=== PATIENT | male | born 1980 | race Caucasian/White ===

== ENCOUNTER 2017-11-07 09:26 | Emergency (ER) | payer OTHER ==
[~2017-11-07] VITALS: Ht 175.3 cm; Wt 81.7 kg
[2017-11-07] MEDS ORDERED: ZOCOR20 MG PO (09:37)
[2017-11-07 10:25] VITALS: BP 138/75
== END 2017-11-07 10:25 | disposition home or self-care (01) ==
LOC: M.ERS 09:26
DX: S01.81XA Laceration without foreign body of other part of head, initial encounter (principal); F17.210 Nicotine dependence, cigarettes, uncomplicated; W18.09XA Striking against other object with subsequent fall, initial encounter; Y93.89 Activity, other specified; Y92.89 Other specified places as the place of occurrence of the external cause; Y99.8 Other external cause status

== ENCOUNTER 2017-11-14 10:14 | Emergency (ER) | payer OTHER ==
[~2017-11-14] VITALS: Ht 172.7 cm; Wt 72.6 kg
[~2017-11-14 10:14] MED LIST: ZOCOR20 MG PO
[2017-11-14 10:21] VITALS: BP 138/102
== END 2017-11-14 10:35 | disposition home or self-care (01) ==
LOC: M.ERS 10:14
DX: S01.81XD Laceration without foreign body of other part of head, subsequent encounter (principal); F17.210 Nicotine dependence, cigarettes, uncomplicated; X58.XXXD Exposure to other specified factors, subsequent encounter